=== PATIENT | female | born 1960 | race African-American/Black ===

== ENCOUNTER 2018-01-29 15:05 | Emergency (ER) | payer SELFPAY ==
[~2018-01-29] VITALS: Ht 149.9 cm; Wt 58.0 kg
[2018-01-29 15:17] VITALS: BP 160/70
== END 2018-01-29 23:00 | disposition left against medical advice (07) ==
LOC: ER 15:05
DX: H93.11 Tinnitus, right ear (principal)
CPT/HCPCS: 99281